=== PATIENT | male | born 1950 | race Caucasian/White ===

== ENCOUNTER 2016-07-08 11:25 | Day surgery (SDC) | payer MEDICARE, MEDICAID ==
--- NOTE | 2016-07-07 11:17 | PCM.ANEPRE ---
Anesthesia Pre-Op Review Additional Comments chart reviewed. Ok to proceed. likely best approach would be Aaron Claudio MD Jul 07, 2016 11:17
[~2016-07-08] VITALS: Ht 185.4 cm; Wt 80.3 kg
[~2016-07-08 11:25] MED LIST: ALBU18HF INH; AMLO10TA3 PO; ASPI-973 PO; ATRV10T PO; BUPR150T12 PO; CeFAZolin Inj 2 GM in IV Premix 1 EACH IV SCH; DIGO250T72 PO; FURO-129 PO; INSU100I13 SUBQ; LISI40TA PO; Lactated Ringer's 1,000 ML IV SCH; METO-272 PO; NITR1PAT64 TRANSDERM; SPIR25TA17 PO
[2016-07-08] MEDS ORDERED: Ketamine 10 mg/mL 20 mL Inj ONE (11:26)
[2016-07-08] MEDS ORDERED: Propofol 10,000 mCg/mL 20 mL Inj ONE (11:26)
[2016-07-08 11:45] VITALS: BP 134/4; PULSE 60; RESP 14; O2SAT 98
[2016-07-08] MEDS ORDERED: Lactated Ringer's 1,000 ML IV ONE (11:51)
[2016-07-08] MEDS ORDERED: fentaNYL-PF 50 mCg/mL 2 mL Inj IVPUSH PRN (13:35)
[2016-07-08] MEDS ORDERED: Labetalol 5 mg/mL 4 mL Inj IV PRN (13:35)
[2016-07-08] MEDS ORDERED: Atropine 0.4 mg/mL Inj IVPUSH PRN (13:35)
[2016-07-08] MEDS ORDERED: MetoCLOpramide 5 mg/mL 2 mL Inj IVPUSH PRN (13:35)
[2016-07-08] MEDS ORDERED: hydrALAZINE 20 mg/mL Inj IVPUSH PRN (13:35)
[2016-07-08] MEDS ORDERED: EPHEDrine Sulfate 50 mg/mL Inj IVPUSH PRN (13:35)
[2016-07-08] MEDS ORDERED: Lactated Ringer's 1,000 ML IV SCH (13:35)
[2016-07-08] MEDS ORDERED: Phenylephrine 10,000 mCg/mL Inj IVPUSH PRN (13:35)
[2016-07-08] MEDS ORDERED: Ondansetron 2 mg/mL 2 mL Inj IVPUSH PRN (13:35)
[2016-07-08] MEDS ORDERED: Lactated Ringer's 500 ML IV PRN (13:35)
[2016-07-08] MEDS ORDERED: HepLOK Flush 100 unit/mL 5 mL Inj IVFLUSH ONE (13:38)
[2016-07-08] MEDS ORDERED: Bupivacaine-MPF 0.5% W/EPI 30 mL Inj INFILTRATE ONE (13:38)
[2016-07-08] MEDS ORDERED: Lidocaine PF 1% 30 mL Inj INFILTRATE ONE (13:38)
--- NOTE | 2016-07-08 13:39 | PCM.HPANE ---
Patient Data Surgeon Admitting Provider: Attending Provider:Rasheed Fischer MD Primary Care Physician:Michael Mack MD Other Provider:[facility] Reason for Visit Bladder Cancer Ht/WT & BMI Height (Feet): 6 Height (Inches): 1 Weight (Kilograms): 80.286 Body Mass Index 23.00 Allergies Coded Allergies: No Known Allergies (Verified , 07/07/16) Past Anesthesia History Anesthesia History: Denies:: Anesthesia Reactions, Malignant Hyperthermia Diabetes History Hx Diabetes?: Yes Type of Diabetes: Type II Glycemic Control: Insulin Dependent MRSA MRSA: No Medications Blood Thinner: Aspirin Hypertension Medication: Yes (LASIX,SPIRONALACTONE,LISINOPRIL,AMLODIPINE) Home Meds Incl Beta Martha: Yes (METOPROLOL) Active Scripts [Spironolactone] (Aldactone) No Conflict Check25 Mg PO DAILY #30 Prov:Christy Cordero DO 07/17/12 Reported Medications Albuterol Sulfate (Ventolin HFA Inhaler)200 Puff/18 Gm Inhaler1 Puff INH Q4 PRN For Wheezing #1 INHALER Ref 0 07/07/16 Nitroglycerin 0.4 mg/hr Patch 1 Each Patch0.4 Mg TRANSDERM DAILY 07/07/16 Metoprolol Succinate ER 50 Mg Tab.er.24h50 Mg PO DAILY Ref 0 07/07/16 Lisinopril 40 Mg Vvwmlt16 Mg PO DAILY 30 Days Ref 0 07/07/16 Insulin Glargine (Lantus U100 Solostar Insulin Pen)100 Unit/1 Ml Insuln.pen15 Unit SUBQ QPM #1 PENINJ Ref 0 07/07/16 Furosemide (Lasix)20 Mg Fzoaus03 Mg PO DAILY 30 Days Ref 0 07/07/16 Digoxin 250 Mcg Pwdrqd857 Mcg PO DAILY #30 TABLET Ref 0 07/07/16 Bupropion ER 150 Mg Tablet.er150 Mg PO BID Ref 0 07/07/16 Atorvastatin (Lipitor)10 Mg Tab10 Mg PO DAILY Ref 0 07/07/16 Aspirin 81 Mg Wavdru82 Mg PO DAILY Ref 0 07/07/16 Amlodipine 10 Mg Xeayfx88 Mg PO DAILY Ref 0 07/07/16 Discontinued Reported Medications Albuterol-Expunged Drug, Do Not Renew! 60 Puff/8 Gm Wrkaxbu42 Puff IH Q4-6H 03/13/13 Lisinopril-Expunged Drug, Do Not Renew! 40 Mg Mgjzbe78 Mg PO DAILY 01/23/13 Ranitidine Hcl-Expunged Drug, Do Not Renew! ([employer] 150-Expunged Drug, Do Not Renew!)150 Mg Vubtbe732 Mg PO BID 01/19/13 INSULIN GLARGINE-Expunged Drug, Do Not Renew! (Lantus-Expunged Drug, Do Not Renew!)100 U/Ml U14 U Sq Hs 01/19/13 Nitroglycerin-Expunged Drug, Do Not Renew! (Nitroglycerin SL-Expunged Drug, Do Not Renew!)0.4 Mg Subl0.4 Mg SL PRN Ref 0 09/21/08 Nitroglycerin-Expunged Drug, Do Not Renew! 1 Patch .24 H Patch.td241 Patch TD on am off bedtime PRN Ref 0 09/21/08 Aspirin-Expunged Drug, Do Not Renew! 325 Mg Rynmxg08 Mg PO DAILY Ref 0 09/21/08 Discontinued Scripts Furosemide-Expunged Drug, Do Not Renew! 20 Mg Tbomkk57 Mg PO DAILY #20 Prov:Christy Cordero DO 07/17/12 Simvastatin-Expunged Drug, Choose New Med! 20 Mg Zrarbr28 Mg PO HS #30 Prov:Christy Cordero DO 07/17/12 Metoprolol Suc-Expunged Drug, Do Not Renew! 50 Mg Tber50 Mg PO DAILY #30 Prov:Christy Cordero DO 07/17/12 History History of ENT Problems?: Yes HEENT History: Positive for:: Cataracts Sinus Problem (S/P NASAL SURGERY) Hx of Heart Problems?: Yes Cardiovascular History: Positive for:: Atrial Fibrillation (CHRONIC A FIB/ FLUTTER (PT REFUSES WARFARIN)-ON DIGOXIN) Cardiac Surgery (6 VESSEL CABG 2005) Chest Pain (HX NSTEMI 2005) Congestive Heart Failure Coronary Artery Disease Edema Heart Murmur (GR III/ JAVON, HEARD @ [facility] ECHO 08/2014 EF 45-50%) Hypertension (HYPERLIPIDEMIA) Irregular Heartbeat (CHRONIC A FIB/FLUTTER) Peripheral Vascular (S/P LT CEA CHRONIC OCCLUSION RT CAROTID S/P MULT LE VASCULAR PROCEDURES) Valvular Heart Disease (MILS MITRAL & AORTIC STENOSIS MPS 06/2016 EF 40 %) Hx of Respiratory Problem?: Yes Respiratory History: Positive for:: COPD Dyspnea (SIMMONS) Emphysema Use of C-PAP Machine (DWAINE+ UNTREATED SLEEP STUDY 12/2014) Use of Inhalers / NEBS Denies:: Tuberculosis Hx Neurologic Problems?: Yes Neurological History: Positive for:: CVA Dizziness TIA (2014 PRIOR TO LT CEA) Hx of GI Problems?: Yes Gastrointestinal History: Positive for:: Gastroesphageal Reflux ( GASTROPARESIS R/T DIABETES) Other GI Pertinent History: C/OF CONSTIPATION, ABD PAIN, UNINTENTIONAL WEIGHT LOSS Hx of Problems?: Yes Other Pertinent History: C/OF FREQUENCY, URGENCY, DYSURIA BLADDER TUMOR (CA) /IV ACCESS=CURRENT PROBLEM Male Hx: Denies:: Prostate Problems Scrotal Mass Testicular Surgery Skin History: Denies:: History Skin Disorders? Pressure Ulcers Hx Musculoskeletal Problems?: No Hx of Psycho/Social Problems?: No Hx Surgeries?: Yes (6 VESSEL CABG,LT CEA,NASAL SURGERY,LE VASCULAR PROCEDURES) Hx Any Other Health Problems?: Yes Other History: Positive for:: Cancer (BLADDER) Hospitalization (CARDIAC) Denies:: Thyroid Disease History Blood Transfusions: Positive for:: Blood Transfusions Denies:: Blood Transfuse Reaction Hx Diabetes: Yes Hx Alcohol Use: NoHx Substance Use: No Smoking Status: Former Smoker Have You Smoked inLast 12 mo: YesApprox How Many Cigarettes/day: 1 PPD 50 PK/YR/HX Stop/Bang S-Snoring: Do You Snore Loudly: No T-Tired: feel tired, fatigued: Yes O-Obsered: Observed not breath: Yes P-Blood Pressure: treated: Yes B- Body Mass Index > 35 kg/m2: No A- Age over 50: Yes N- Neck Large Circumference: No G- Gender Male: Yes DWAINE Total Score: 5 Risk Assessment Category Category 1A: Patient has history of documented sleep apnea, and HAS NOT received any narcotic, sedative or anesthesia administration during this stay. Category 1B: Patient has history of documented sleep apnea, and HAS received any narcotic , sedative or anesthesia administration during this stay Category 2: Patient has SUSPECTED Obstructive Sleep Apnea, and HAS received any narcotic , sedative or anesthesia administration during this stay. Category 3: Patient has SUSPECTED Obstructive Sleep Apnea and HAS NOT received narcotic, sedative or anesthesia administration during this stay. Category 4: Outpatient in Procedural Areas with known sleep apnea or who screen positive for High Risk via the STOP/BANG questionnaire. Exam Exam Vital Signs Vital Signs Date Time Temp Pulse Resp B/P Pulse Ox O2 Delivery O2 Flow Rate FiO2 07/08/16 11:45 36.7 60 14 134/4 98 Room Air General Appearance: Alert, Oriented X3, Cooperative, Mild Distress HEENT/AIRWAY: MP 2, Neck Movement (FROM), Mouth Opening (3 FBMO, edentulous) Lungs: Diminished, Wheezes Heart: Other (irreg irreg) Meds/Labs/Diagnostics Admission Meds Current Medications Lactated Ringer's (Lr) 1,000 ml @ ud STK-MED ONCE IV Last administered on 07/08t 11:51; Start 07/08/16 at 11:51; Stop 07/08/16 at 11:52; Status DC Plan Impression Patient chart reviewed, patient interviewed and anesthestic plan with risks, benefits, and alternatives discussed, and informed consent obtained. NPO Status: confirmed before mn ASA Physical Status: ASA3 Severe Disease (CAD, COPD) Anesthetic Plan: MAC Bene/Risks/Altern/Consents: Yes HP Complete Prior to Induction: Yes Chente Anderson MD Jul 08, 2016 11:58
[2016-07-08 14:10] VITALS: BP 103/37; PULSE 60; RESP 10; O2SAT 98
[2016-07-08] MEDS ORDERED: HYDROcodone-APAP 5-325 mg Tablet PO PRN (14:15)
[2016-07-08 14:20] VITALS: BP 110/43; PULSE 58; RESP 14; O2SAT 99
[2016-07-08 14:45] VITALS: BP 150/56; PULSE 60; RESP 14; O2SAT 95
--- NOTE | 2016-07-08 15:06 | OP ---
[address] [address] OPERATIVE REPORT PATIENT: AMYO EDWARDS : 1950 MR#: [id number] ADMIT: 07/08/2016 JOB ID: [id number] DATE OF SURGERY: 07/08/2016 ANESTHESIA: MAC with local. PREOPERATIVE DIAGNOSIS(ES): Bladder cancer. POSTOPERATIVE DIAGNOSIS(ES): Bladder cancer. OPERATIVE PROCEDURE: Insertion of left subclavian vein Port-A-Cath using fluoroscopy with interpretation. SURGEON: Rasheed Fischer MD. OFFICE SERVICES ASSISTANT: TIERA Zhou. COMPLICATIONS: None. ESTIMATED BLOOD LOSS: Minimal. CONDITION: Satisfactory. SPECIMEN: None. FINDINGS: A low-profile port was placed in left subclavian vein. INDICATIONS/SIGNIFICANT HISTORY: The patient is a 66-year-old man with a recent diagnosis of stage 4 bladder cancer. He is scheduled to begin chemotherapy tomorrow. OPERATIVE TECHNIQUE: The patient was taken to the operating room and placed in a supine position. Light sedation was administered and perioperative antibiotics were given. The neck and chest were prepped and draped in a standard surgical fashion and a procedural pause performed. The left subclavian vein was accessed with a finder needle and a wire was inserted into the vein. Under fluoroscopic visualization, I tried to get the wire to course through the heart into the IVC confirming it is in the vein but could not get it to go down there. I therefore put in a micropuncture sheath and checked manometry confirming that it was venous. Local anesthetic injected and a subcutaneous pocket was created in the left anterior chest. A low-profile Port-A-Cath was secured in place using three 2-0 Prolene sutures. The catheter was tunneled up to the wire exit point and inserted into the vein under fluoroscopic visualization using the Seldinger technique. Good final position was confirmed. The port aspirated and flushed nicely. This was locked with heparin. The skin was closed using 3-0 Vicryl deep dermal, followed by a running 4-0 Monocryl. Dermabond was applied. The entire procedure was well tolerated without complication.
--- NOTE | 2016-07-08 15:32 | DRSVH ---
PROCEDURE: X-RAY CHEST ONE VIEW, PORTABLE ([id number]) INDICATIONS: port placement. TECHNIQUE: One view of the chest was acquired. COMPARISON: [facility], , CHEST 1VW (PORTABLE), 07/14/2012, 15:18. FINDINGS: Surgical changes and devices: There is a mina-catheter on the left with the tip in the area of SVC. Sternotomy and CABG. Lungs and pleura: No pleural effusions or pneumothorax. Lungs are clear. Mediastinum: Mediastinal contours appear normal. Heart is moderately enlarged. Bones and chest wall: No suspicious bony lesions. Overlying soft tissues appear unremarkable. IMPRESSION: Left Port-A-Cath tip is in the area of SVC. Dictated by: Nitza Jo M.D. on 07/08/2016 at 15:29 Approved by: Nitza Jo M.D. on 07/08/2016 at 15:31
--- NOTE | 2016-07-08 16:57 | PCM.ANEP2 ---
Post Anesthesia Evaluation ASA/CMS Post Anesthesia VS in Patient's Normal Range?: Yes Resp Stable; Airway Patent?: Yes CV Function & Hydration Stable: Yes Mental Status Recovered?: Yes Pain control Satisfactory?: Yes N/V Control Satisfactory?: Yes Chente Anderson MD Jul 08, 2016 16:57
--- NOTE | 2016-07-08 16:57 | PCM.ANEP1 ---
Post Anesthesia Phase 1 PACU Phase 1 Assessment Vital Signs Vital Signs Date Time Temp Pulse Resp B/P Pulse Ox O2 Delivery O2 Flow Rate FiO2 07/08/16 14:45 60 14 150/56 95 Room Air 07/08/16 14:20 58 14 110/43 99 Simple Mask 07/08/16 14:10 36.6 60 10 103/37 98 Simple Mask 07/08/16 11:45 36.7 60 14 134/4 98 Room Air Anesthetic Administered: MAC Level of Alertness: Awake, talking CAMPUZANO's with Equal Strength: Yes Pain: No Nausea or Vomiting: No Oxygen Delivery: Simple Mask Lungs: Diminished, Wheezes Dermatome Level: Full Sensation Chente Anderson MD Jul 08, 2016 16:57
[2016-07-12] MEDS ORDERED: LISI10TA PO (07:36)
== END 2016-07-08 23:59 | disposition home or self-care (01) ==
LOC: SAS 11:25
PROVIDERS: ATTEND General Practice
DX: C67.9 Malignant neoplasm of bladder, unspecified (principal); I11.0 Hypertensive heart disease with heart failure; I50.9 Heart failure, unspecified; E11.9 Type 2 diabetes mellitus without complications; I48.91 Unspecified atrial fibrillation; I25.10 Atherosclerotic heart disease of native coronary artery without angina pectoris; I25.2 Old myocardial infarction; J44.9 Chronic obstructive pulmonary disease, unspecified; G47.33 Obstructive sleep apnea (adult) (pediatric); E78.5 Hyperlipidemia, unspecified; I73.9 Peripheral vascular disease, unspecified; Z95.1 Presence of aortocoronary bypass graft; Z86.73 Personal history of transient ischemic attack (TIA), and cerebral infarction without residual deficits; I34.2 Nonrheumatic mitral (valve) stenosis; I65.29 Occlusion and stenosis of unspecified carotid artery; Z87.891 Personal history of nicotine dependence; Z79.82 Long term (current) use of aspirin; Z79.4 Long term (current) use of insulin; Z79.51 Long term (current) use of inhaled steroids
CPT/HCPCS: 36415; 36561; 71010; 77001; 80162; C1788; C1894; J1642; J7120

== ENCOUNTER 2016-07-19 17:38 | Emergency (ER) | payer MEDICARE, MEDICAID ==
[~2016-07-19] VITALS: Ht 182.9 cm; Wt 78.2 kg
[~2016-07-19 17:38] MED LIST changes: -CeFAZolin Inj 2 GM in IV Premix 1 EACH IV SCH; -FURO-129 PO; +LISI10TA PO; -LISI40TA PO; -Lactated Ringer's 1,000 ML IV SCH
[2016-07-19 17:57] VITALS: BP 130/76; PULSE 170; RESP 18; O2SAT 97
[2016-07-19 18:34] VITALS: BP 155/65; PULSE 88; RESP 15; O2SAT 98
[2016-07-19] MEDS ORDERED: 0.9% Sodium Chloride 100 ML ONE (18:54)
[2016-07-19 19:03] LABS: BASOPHILS % (AUTO) 0 % (0-3); EOSINOPHILS % (AUTO) 0 % (0-5); Mean Corpuscular Hemoglobin 27.4 pg (27.0-35.0); NEUTROPHILS % (AUTO) 93.5 % (40-74); Platelet Count 357 bil/L (150-400)
--- NOTE | 2016-07-19 19:11 | ED.REPORT ---
HPI-General Illness Date of Service Jul 19, 2016 ED Provider: Adam Michel MD 66 year old male with a recent diagnosis of bladder cancer presents to the ER accompanied by his complaining of three days of abdominal discomfort and generalized weakness. Patient describes the discomfort as a sensation of his "stomach hiccupping". He had his first chemotherapy appointment four days ago, and states that he was fine until the following day when symptoms onset. Associated symptoms include nausea, diaphoresis, cough, sneezing, and transient shortness of breath secondary to underlying COPD. Patient denies abdominal pain , fever, and chest pain. Nursing Notes Stated Complaint: SICK Chief Complaint: General Complaint Nursing Notes Reviewed: Yes Allergies: Coded Allergies: No Known Allergies (Verified , 07/19/16) Scheduled ([[id number]]) 25 MG PO DAILY Amlodipine (Amlodipine) 10 Mg Tablet 10 MG PO DAILY Aspirin (Aspirin) 81 Mg Tablet 81 MG PO DAILY Atorvastatin (Lipitor) 10 Mg Tab 10 MG PO DAILY Bupropion ER (Bupropion ER) 150 Mg Tablet.er 150 MG PO BID Digoxin (Digoxin) 250 Mcg Tablet 250 MCG PO DAILY Insulin Glargine (Lantus U100 Solostar Insulin Pen) 100 Unit/1 Ml Insuln.pen 15 UNIT SUBQ QPM Lisinopril (Lisinopril) 10 Mg Tablet 10 MG PO DAILY Metoprolol Succinate ER (Metoprolol Succinate ER) 50 Mg Tab.er.24h 50 MG PO DAILY Nitroglycerin 0.4 mg/hr Patch (Nitroglycerin 0.4 mg/hr Patch) 1 Each Patch 0.4 MG TRANSDERM DAILY Scheduled PRN Albuterol Sulfate (Ventolin HFA Inhaler) 200 Puff/18 Gm Inhaler 1 PUFF INH Q4 PRN PRN For Wheezing Metoclopramide (Reglan) 5 Mg Tablet 5 MG PO QID PRN PRN For Nausea General Time Seen by MD: 19:10 Chief Complaint Weakness, Other (Abdominal Discomfort) Hx Obtained From: Patient, Spouse Arrived By: Walk-in Sudden in Onset?: No Onset Occurred: 3 days ago Symptom Duration: Since onset Associated with: Reports: Cough, Shortness of breath, Denies: Abdominal pain, Chest pain, Fever Context Related History: Reports Cancer Past Medical History Past Medical History Reports: Cancer (bladder) Reports: Atrial fibrillation Smoking History Current Every Day Smoker Social History Other Social History: Good social support Review of Systems Full Review of Systems Constitutional: Reports: Weakness - generalized, Denies: Chills, Fever Respiratory: Reports: Non-productive cough, Shortness of breath Cardiovascular: Denies: Chest pain GI: Reports: Nausea, Denies: Abdominal pain, Vomiting Allergy / Immune: Reports: Sneezing Complete sys rev & neg: except as marked. Physical Exam Vital Signs Vital Signs Date Time Temp Pulse Resp B/P Pulse Ox O2 Delivery O2 Flow Rate FiO2 07/19/16 22:43 36.7 67 168/67 97 Room Air 07/19/16 20:15 36.7 66 17 144/50 98 Room Air 07/19/16 18:34 36.7 88 15 155/65 98 Room Air 07/19/16 17:57 36.1 170 18 130/76 97 Room Air Initial VS: Reviewed Head / Eyes: Atraumatic, Normocephalic Neck: Supple, Non-tender, Full range of motion Extremities: Vascular intact, Neuro intact, No swelling, No tenderness Skin: Warm, Dry, No cyanosis Neurologic: Alert, Oriented, Nonfocal General/Constitutional: Awake, Alert, Well developed Respiratory / Chest: Breath sounds NL, No respiratory distress, No rales, No rhonchi, No wheezing Cardiovascular: Heart rate NL, Regular rhythm Heart Sounds / Murmur: Positive: Systolic murmur present.. (mild holosystolic murmur, left upper sternal border) Abdomen: Soft, Non-tender, No guarding, No rebound, No distention Interpretation & Diagnostics Lab Results Interpretation Result Diagram: 07/19/16 1847 07/19/161846 Test 07/19/16 18:47 07/19/16 19:47 White Blood Count 21.2th/mm3 (3.8-10.1) Red Blood Count 5.63mil/mm3 (4.40-5.80) Hemoglobin 15.4g/dL (13.8-17.2) Hematocrit 44.5% (41.0-50.0) Mean Corpuscular Volume 79.0fL (81-100) Mean Corpuscular Hemoglobin 27.4pg (27.0-35.0) Mean Corpuscular Hemoglobin Concent 34.6% (32.0-37.0) Red Cell Distribution Width 13.3% (12.3-15.4) Platelet Count 357bil/L (150-400) Neutrophils (%) (Auto) 93.5% (40-74) Lymphocytes (%) (Auto) 4.9% (14-46) Monocytes (%) (Auto) 1.0% (4-12) Eosinophils (%) (Auto) 0% (0-5) Basophils (%) (Auto) 0% (0-3) Sodium Level 127mEq/L (134-144) Potassium Level 4.9mEq/L (3.5-5.2) Chloride Level 86mEq/L (97-108) Carbon Dioxide Level 28mmol/L (18-29) Blood Urea Nitrogen 35mg/dL (8-27) Creatinine 0.79mg/dL (0.76-1.27) Estimat Glomerular Filtration Rate 105mL/min (>59) Glucose Level 386mg/dL (60-99) Lactic Acid Level 2.0mmol/L (0.4-2.0) Calcium Level 9.5mg/dL (8.5-10.1) Total Bilirubin 1.6mg/dL (0.0-1.2) Aspartate Amino Transf (AST/SGOT) 20U/L (0-50) Alanine Aminotransferase (ALT/SGPT) 29U/L (0-44) Alkaline Phosphatase 87U/L (25-160) Troponin T < 0.010ug/L (0.0-0.011) Total Protein 6.6g/dL (6.4-8.4) Albumin 3.9g/dL (3.4-5.0) Hold Stevens Top Tube Received (Received) Urine Color Yellow (YELLOW) Urine Appearance Clear (CLEAR,HAZY) Urine pH 5.5 (5.0-8.0) Urine Specific [place] 1.030 (1.003-1.035) Urine Protein 100mg/dL (NEG,TRACE) Urine Glucose (UA) 500mg/dL (NEGATIVE) Urine Ketones Negativemg/dL (NEGATIVE) Urine Occult Blood Moderate (NEGATIVE) Urine Nitrite Negative (NEGATIVE) Urine Bilirubin Negative (NEGATIVE) Urine Urobilinogen 1.0mg/dL (NORMAL) Urine Leukocyte Esterase Small (NEGATIVE) Urine RBC 0-2/hpf (0-2) Urine WBC 0-5/hpf (0-5) Urine Epithelial Cells None/hpf (NONE-MOD) Urine Crystals None seen (NONE SEEN) Urine Bacteria Few/hpf (NONE-FEW) Urine Hyaline Casts None/lpf (NONE) Urine Granular Casts None seen (NONE SEEN) Urine Waxy Casts None seen (NONE SEEN) Urine Red Blood Cell Casts None seen (NONE SEEN) Urine White Blood Cell Casts None seen (NONE SEEN) Urine Mucus None seen (None Seen) Urine Trichomonas None seen (NONE SEEN) Urine Yeast None (NONE SEEN) Urinalysis Comment None Urine Culture Reflexed Indicated ECG Interpretation ECG Interpretation: Sinus rhythm, rate 88 LVH RBBB J-point elevation Time: 18:44 Interpreted by: ED physician Re-Eval/Medical Decision Med Decision/Clinical Course 66-year-old male with recent diagnosis of bladder cancer who started chemotherapy several days ago presenting with nausea since chemotherapy. He also reports feeling weak. His vitals are stable. Labs are remarkable for a white blood cell count 21,000 but that is decreased from previous. He has no other symptoms other than some vague abdominal discomfort but denies any pain. His abdomen is soft with no tenderness. His urine is negative. He has no respiratory symptoms. Likely nausea and weakness due to recent chemotherapy. Patient felt better after Reglan. Zofran did not help. Requested to go home. We will discharge home with Reglan and with plans to follow-up with his oncologist and his primary doctor. Return precautions given. Source of Hx: Old records Time of Eval: 21:39 Re-Evaluation/Progress Note: Discussed lab results and plan to discharge. Patient is amenable to the plan. Return precautions given. All other questions addressed. Counseled Regarding: Diagnosis, Lab results, Need for follow-up, When/why to return to ED Discharge & Departure Primary Impression: Nausea Disposition: Home Discharge Condition All VS Reviewed: Yes Condition: Stable Additional Instructions: Your workup today was reassuring. I do not believe that there is any dangerous cause for your symptoms at this time. I think that your symptoms are likely side-effects of your chemotherapy. Call your primary care provider to arrange a follow-up appointment in 1-2 days if symptoms do not improve. Return to the ER if you develop worsening symptoms, fever, chills, chest pain, shortness of breath, or any other concerning symptoms. Referrals: Michael Mack MD (PCP) Scribe Attestation Portions of this note were transcribed by Marcelino Sanchez. I, Dr. Michel, personally performed the history, physical exam and medical decision-making; I reviewed and confirmed the accuracy of the information in the transcribed note. Signed by: Roxi Cornelius, 07/19/2016 - 21:43 copies to: Michael Mack MD, Ben M MD Jul 19, 2016 19:11 MARCELINO SANCHEZ Jul 19, 2016 19:24
[2016-07-19] MEDS ORDERED: 0.9% Sodium Chloride 1,000 ML IV ONE (19:26)
[2016-07-19] MEDS ORDERED: Ondansetron 2 mg/mL 2 mL Inj IVPUSH PRN (19:30)
[2016-07-19 20:04] LABS: APPEARANCE,URINE CLEAR (CLEAR,HAZY); COLOR,URINE YELLOW (YELLOW); OCCULT BLOOD,URINE MODERATE (NEGATIVE); PH,URINE 5.5 (5.0-8.0)
[2016-07-19 20:15] VITALS: BP 144/50; PULSE 66; RESP 17; O2SAT 98
[2016-07-19] MEDS ORDERED: MetoCLOpramide 5 mg/mL 2 mL Inj IVPUSH ONE (21:25)
[2016-07-19] MEDS ORDERED: METO5TAB78 PO (21:42)
[2016-07-19 22:43] VITALS: BP 168/67; PULSE 67; O2SAT 97
[2016-07-19] MEDS ORDERED: HepLOK Flush 100 unit/mL 5 mL Inj ONE (22:44)
== END 2016-07-19 22:50 | disposition home or self-care (01) ==
LOC: SED 17:38
DX: R11.0 Nausea (principal); R61 Generalized hyperhidrosis; R05 Cough; R06.7 Sneezing; R06.02 Shortness of breath; R10.9 Unspecified abdominal pain; F17.200 Nicotine dependence, unspecified, uncomplicated; Z79.82 Long term (current) use of aspirin; Z92.21 Personal history of antineoplastic chemotherapy
CPT/HCPCS: 36415; 80053; 81000; 83605; 84484; 85025; 87040; 87086; 93005; 96361; 96374; 99285; J2405; J7030